=== PATIENT | female | born 1940 | race Caucasian/White ===

== ENCOUNTER 2019-06-22 09:30 | Emergency (ER) | payer SELFPAY ==
[~2019-06-22] VITALS: Ht 152.4 cm; Wt 78.0 kg
[~2019-06-22 09:30] MED LIST: AMLO5TAB4 PO; CALC-216 PO; FAMO-96 PO; OMEP20CA16 PO; ONDA4TAB8 PO
[2019-06-22 09:35] VITALS: Ht 152.4 cm; Wt 78.0 kg
[2019-06-22 12:00] VITALS: BP 171/76; PULSE 66; RESP 21
== END 2019-06-22 12:48 | disposition home or self-care (01) ==
LOC: E/R 09:30
DX: R10.13 Epigastric pain (principal); I10 Essential (primary) hypertension; R11.0 Nausea; R40.2142 Coma scale, eyes open, spontaneous, at arrival to emergency department; R40.2362 Coma scale, best motor response, obeys commands, at arrival to emergency department; R40.2252 Coma scale, best verbal response, oriented, at arrival to emergency department
CPT/HCPCS: 36415; 71045; 80053; 83690; 84484; 85025; 93005